=== PATIENT | female | born 1985 | race Caucasian/White ===

== ENCOUNTER 2019-07-02 10:35 | Outpatient (CLI) | payer OTHER ==
[~2019-07-02] VITALS: Ht 170.2 cm; Wt 69.5 kg
[~2019-07-02 10:35] MED LIST: CALC200T3 PO; CHOL100011 PO; FOLI0.4T2 PO; IBUP-1223 PO; OMEP10CA2 PO; OXYC-302 PO; PREN1TAB52 PO; SERT25TA PO
== END 2019-07-02 11:30 | disposition home or self-care (01) ==
LOC: LDOP 10:35
PROVIDERS: ATTEND Obstetrics & Gynecology
DX: O26.893 Other specified pregnancy related conditions, third trimester (principal); R10.9 Unspecified abdominal pain; Z3A.38 38 weeks gestation of pregnancy
CPT/HCPCS: 59025; 99201; G0463

== ENCOUNTER 2019-07-04 00:48 | Inpatient (IN) | payer OTHER ==
[~2019-07-04] VITALS: Ht 170.2 cm; Wt 70.5 kg
[2019-07-04] MEDS: D5%-LACTATED RINGERS 1,000 ML IV SCH ×3 (00:54→16:54)
[2019-07-04] MEDS ORDERED: OXYTOCIN 30U/ 0.9% NaCL 500ML 500 ML IV ONE (00:54)
[2019-07-04] MEDS ORDERED: FENTANYL/BUPIV./NS/PF 250 ML EPIDCONT SCH ×2 (00:56→01:51)
[2019-07-04] MEDS ORDERED: NEWBORN KIT ONE (00:59)
[2019-07-04] MEDS ORDERED: OXYTOCIN 30U/ 0.9% NaCL 500ML 500 ML ONE ×2 (00:59→05:03)
[2019-07-04] MEDS ORDERED: TERBUTALINE 1 MG/ML, 1ML SQ PRN (01:00)
[2019-07-04] MEDS ORDERED: FENTANYL PF 100 MCG/2ML IVPush PRN (01:00)
[2019-07-04] MEDS ORDERED: CALCIUM CARBONATE 500 MG TAB.CHEW PO PRN (01:00)
[2019-07-04] MEDS ORDERED: ONDANSETRON 2MG/ML, 2ML IVPush PRN (01:00)
[2019-07-04] MEDS ORDERED: TERBUTALINE 1 MG/ML, 1ML IVPush PRN (01:00)
[2019-07-04] MEDS: LACTATED RINGERS 1,000 ML IV SCH ×6 (01:05→17:51)
[2019-07-04] MEDS ORDERED: FENTANYL PF 100 MCG/2ML ONE (01:05)
[2019-07-04 01:18] LABS: BASOPHILS # (AUTO) 0.01 x10^3/uL (0-0.1); BASOPHILS % (AUTO) 0 % (0-1); EOSINOPHILS # (AUTO) 0.15 x10^3/uL (0-0.4); EOSINOPHILS % (AUTO) 2 % (1-7); LYMPHOCYTES # (AUTO) 2.64 x10^3/uL (1-3.4); LYMPHOCYTES % (AUTO) 27 % (22-44); MD NO; MEAN CORPUSCULAR HEMOGLOBIN 29.8 pg (27.0-34.8); MEAN CORPUSCULAR HGB CONC 33.6 g/dL (32.4-35.8); MEAN CORPUSCULAR VOLUME 88.6 fL (80-100); MONOCYTES # (AUTO) 0.66 x10^3/uL (0.2-0.8); MONOCYTES % (AUTO) 7 % (2-9); NEUTROPHILS # (AUTO) 6.21 x10^3/uL (1.8-6.8); NEUTROPHILS % (AUTO) 64 % (42-75); PLATELET COUNT 183 x10^3/uL (130-400); RED BLOOD COUNT 3.55 x10^6/uL (3.82-5.3); RED CELL DISTRIBUTION WIDTH 12.2 % (9.6-15.2)
[2019-07-04] MEDS ORDERED: BUPIVACAINE 0.25% ONE (01:25)
[2019-07-04] MEDS ORDERED: EPHEDRINE 50 MG/ML, 1ML ONE (01:52)
[2019-07-04] MEDS ORDERED: LACTATED RINGERS 1,000 ML IVBOLUS PRN (02:00)
[2019-07-04] MEDS ORDERED: EPHEDRINE 50 MG/ML, 1ML IVPush PRN (02:00)
[2019-07-04] MEDS: OXYTOCIN 30U/ 0.9% NaCL 500ML 500 ML IV SCH ×2 (04:14→14:14)
[2019-07-04] MEDS ORDERED: OXYcodone/APAP 5/325MG TABLET PO PRN ×2 (04:30)
[2019-07-04] MEDS ORDERED: ONDANSETRON 2MG/ML, 2ML IV PRN (04:30)
[2019-07-04] MEDS ORDERED: DOCUSATE 100 MG CAPSULE PO PRN (04:30)
[2019-07-04] MEDS ORDERED: SIMETHICONE 80 MG CHEW TAB PO PRN (04:30)
[2019-07-04] MEDS ORDERED: MISOPROSTOL 200 MCG TABLET PR PRN (04:30)
[2019-07-04 08:00] VITALS: BP 111/70
[2019-07-04] MEDS: PRENATAL VIT/IRON/FA 1 EACH TABLET PO SCH (09:00)
[2019-07-04 12:26] VITALS: BP 108/68
[2019-07-04 12:28] LABS: BASOPHILS # (AUTO) 0.01 x10^3/uL (0-0.1); BASOPHILS % (AUTO) 0 % (0-1); EOSINOPHILS % (AUTO) 0 % (1-7); HEMOGRAM NOTE RECHECKED; LYMPHOCYTES # (AUTO) 1.76 x10^3/uL (1-3.4); LYMPHOCYTES % (AUTO) 16 % (22-44); MD NO; MEAN CORPUSCULAR HGB CONC 33.2 g/dL (32.4-35.8); MEAN CORPUSCULAR VOLUME 90.1 fL (80-100); MEAN PLATELET VOLUME 7.2 fL (7.4-10.4); MONOCYTES # (AUTO) 0.72 x10^3/uL (0.2-0.8); MONOCYTES % (AUTO) 7 % (2-9); NEUTROPHILS # (AUTO) 8.48 x10^3/uL (1.8-6.8); NEUTROPHILS % (AUTO) 77 % (42-75); PLATELET COUNT 146 x10^3/uL (130-400); RED BLOOD COUNT 3.32 x10^6/uL (3.82-5.3); RED CELL DISTRIBUTION WIDTH 12.3 % (9.6-15.2)
[2019-07-04] MEDS: IBUPROFEN 800 MG TABLET PO PRN ×2 (14:58→23:49)
[2019-07-04 16:55] VITALS: BP 117/71
[2019-07-04 20:00] VITALS: BP 113/76
[2019-07-05] MEDS: OXYTOCIN 30U/ 0.9% NaCL 500ML 500 ML IV SCH (00:14)
[2019-07-05 00:30] VITALS: BP 108/71
[2019-07-05] MEDS: LACTATED RINGERS 1,000 ML IV SCH (01:51)
[2019-07-05 01:54] LABS: RAPID INFLUENZA A Negative (Negative); RAPID INFLUENZA B Negative (Negative)
[2019-07-05 07:00] VITALS: BP 104/69
[2019-07-05] MEDS: PRENATAL VIT/IRON/FA 1 EACH TABLET PO SCH (09:28)
[2019-07-05] MEDS: IBUPROFEN 800 MG TABLET PO PRN (09:28)
== END 2019-07-05 15:00 | disposition home or self-care (01) | DRG 806 ==
LOC: LDOP 00:48 → LDIP 00:57 → 2NW 07:42
PROVIDERS: ADMIT Obstetrics & Gynecology; ATTEND Obstetrics & Gynecology
PROC: 10E0XZZ Delivery of Products of Conception, External Approach (ICD-10-PCS; principal; 2019-07-04)
PROC: 0KQM0ZZ Repair Perineum Muscle, Open Approach (ICD-10-PCS; 2019-07-04)
DX: O99.02 Anemia complicating childbirth (principal); D62 Acute posthemorrhagic anemia; Z37.0 Single live birth; F32.9 Major depressive disorder, single episode, unspecified; O99.344 Other mental disorders complicating childbirth; Z3A.38 38 weeks gestation of pregnancy; O70.1 Second degree perineal laceration during delivery
CPT/HCPCS: 36415; 85025; 86592; 86850; 86900; 87400; G0378; J3010; J2590; J7120

== ENCOUNTER 2019-07-12 16:28 | Emergency (ER) | payer OTHER ==
[~2019-07-12] VITALS: Ht 170.2 cm; Wt 61.7 kg
[2019-07-12 18:15] LABS: MICROSCOPIC INDICATED
[2019-07-12 18:16] LABS: CULTURE INDICATED? YES
[2019-07-12] MEDS ORDERED: CLINDAMYCIN PMX 600MG/50ML 50 ML IV ONE (19:03)
[2019-07-12] MEDS ORDERED: CEFOXITIN 2 GM in DEXTROSE 5% 100 ML IV ONE (19:03)
--- NOTE | 2019-07-12 19:16 | NUR ---
IV SITE STARTED, IV FLUIDS INFUSING. PT RESTING CALMLY, MONITORS IN PLACE, SIDERAILS UP X2, CALL LIGHT WITHIN REACH. AWAITING LAB RESULTS
[2019-07-12] MEDS ORDERED: CLINDAMYCIN PMX 600MG/50ML 50 ML ONE (19:24)
[2019-07-12] MEDS ORDERED: SODIUM CHLORIDE 0.9% 1,000ML IVBOLUS ONE (19:30)
[2019-07-12] MEDS ORDERED: SODIUM CHLORIDE FLUSH 10ML SYR IVF ONE (19:30)
[2019-07-12 19:39] LABS: MEAN CORPUSCULAR HEMOGLOBIN 29.4 pg (27.0-34.8); MEAN CORPUSCULAR HGB CONC 32.5 g/dL (32.4-35.8); MEAN CORPUSCULAR VOLUME 90.4 fL (80-100); MEAN PLATELET VOLUME 5.9 fL (7.4-10.4); PLATELET COUNT 288 x10^3/uL (130-400); RED BLOOD COUNT 3.94 x10^6/uL (3.82-5.3); RED CELL DISTRIBUTION WIDTH 12.5 % (9.6-15.2)
--- NOTE | 2019-07-12 19:39 | NUR ---
at bedside for eval
[2019-07-12 19:45] LABS: ALANINE AMINOTRANSFERASE 24 U/L (12-78); ALBUMIN 2.8 g/dL (3.4-5.0); ANION GAP 9 mmol/L (5-15); CALCIUM 8.3 mg/dL (8.5-10.1); CHLORIDE 109 mmol/L (98-107); CREATININE 0.75 mg/dL (0.55-1.02)
[2019-07-12 19:48] LABS: ALKALINE PHOSPHATASE 116 U/L (45-117); BILIRUBIN,TOTAL 0.3 mg/dL (0.2-1.0); TOTAL PROTEIN 6.9 g/dL (6.4-8.2)
[2019-07-12] MEDS ORDERED: OMEP-110 PO (19:54)
[2019-07-12] MEDS ORDERED: SERT50TA28 PO (19:54)
[2019-07-12 20:01] LABS: MD YES
[2019-07-12 20:04] LABS: <RBC MORPHOLOGY> NORMAL; BAND#(MANUAL) 2.96 x10^3/uL; BANDS%(MANUAL) 13 % (0-7); BASOS#(MANUAL) 0.23 x10^3/uL (0-0.1); BASOS% (MANUAL) 1 % (0-1); EOS#(MANUAL) 0.23 x10^3/uL (0.0-0.4); EOS% (MANUAL) 1 % (1-7); LYMPH#(MANUAL) 2.05 x10^3/uL (1-3.4); LYMPHS% (MANUAL) 9 % (22-44); METAMYELOCYTES# (MANUAL) 0.23 x10^3/uL (0-0); METAMYELOCYTES% (MANUAL) 1 % (0-1); MONOS#(MANUAL) 0.68 x10^3/uL (0.3-2.7); MONOS% (MANUAL) 3 % (2-9); SEG#(MANUAL) 16.42 x10^3/uL (1.8-6.8); SEGS% (MANUAL) 72 % (42-75)
[2019-07-12 20:05] LABS: <PLATELET ESTIMATE> ADEQUATE; <PLT MORPHOLOGY> NORMAL PLT MORPH
[2019-07-12 20:56] VITALS: BP 122/82
--- NOTE | 2019-07-12 20:56 | NUR ---
PT UP TO RR WITH STEADY GAIT. NOW RESTING CALMLY, MONITORS IN PLACE, IV ABX INFUSING, CALL LIGHT WITHIN REACH
== END 2019-07-12 21:43 | disposition home or self-care (01) ==
LOC: ED 21:05
DX: R00.0 Tachycardia, unspecified (principal); O86.12 Endometritis following delivery
CPT/HCPCS: 36415; 76856; 80053; 81001; 83605; 85025; 87040; 87086; 96365; 96375; 99284; J0694; J7030